=== PATIENT | female | born 2000 | race Caucasian/White ===

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

== ENCOUNTER 2023-08-09 19:19 | Emergency (ER) | payer BC, OTHER ==
[2023-08-09] MEDS ORDERED: ACETAMINOPHEN 500 MG TABLET (FP) ONE (19:47)
[2023-08-09] MEDS ORDERED: FAMOTIDINE 20 MG TABLET ONE (19:48)
[2023-08-09] MEDS ORDERED: MAG HYDROX/AL HYDROX/SIMETH 30 ML UNIT-DOSE CUP ONE (19:48)
[2023-08-09 19:51] VITALS: BP 145/98; PULSE 79; RESP 24; TEMP 98.2; BMI 20.7
[2023-08-09] MEDS: MAG HYDROX/AL HYDROX/SIMETH 30 ML UNIT-DOSE CUP PO ONE (19:57)
[2023-08-09] MEDS: FAMOTIDINE 20 MG TABLET PO ONE (19:57)
[2023-08-09] MEDS: ACETAMINOPHEN 500 MG TABLET (FP) PO ONE (19:57)
[2023-08-09 20:14] LABS: EPITHELIAL CELLS 21-50 /hpf
[2023-08-09 20:54] LABS: HEMATOCRIT 38.2 % (32.4-45.2); HEMOGLOBIN 13.1 G/dL (10.7-15.3); MCH 30.6 pg (25.7-33.7); MCHC 34.2 g/dl (32.0-36.0); MEAN CELL VOLUME 89.4 fl (80-96); PLATELET COUNT 341.5 10^3/uL (134-434); RBC 4.27 10^6/uL (3.60-5.2); RDW 13.3 % (11.6-15.6); WHITE BLOOD COUNT 12.8 10^3/uL (4.0-10.8)
[2023-08-09 21:15] LABS: PLATELET ESTIMATE ADEQUATE
[2023-08-09 21:23] LABS: ALBUMIN 4.1 g/dl (3.4-5.0); BILIRUBIN,TOTAL 0.3 mg/dl (0.2-1); CALCIUM 9.7 mg/dl (8.5-10.1); CREATININE 0.5 mg/dl (0.6-1.3); POTASSIUM 3.7 mmol/L (3.5-5.1); TOT PROT 6.3 g/dl (6.4-8.2)
[2023-08-09] MEDS ORDERED: KETOROLAC TROMETHAMINE 15 MG/ML VIAL ONE (22:00)
[2023-08-09] MEDS ORDERED: METHOCARBAMOL 500 MG TABLET ONE (22:00)
[2023-08-09] MEDS: KETOROLAC TROMETHAMINE 15 MG/ML VIAL IVPUSH ONE (22:03)
[2023-08-09] MEDS: METHOCARBAMOL 500 MG TABLET PO ONE (22:03)
== END 2023-08-09 22:07 | disposition home or self-care (01) ==
LOC: FER 19:19
PROC: 3E0333Z Introduction of Anti-inflammatory into Peripheral Vein, Percutaneous Approach (ICD-10-PCS; principal; 2023-08-09)
DX: R06.02 Shortness of breath (principal); R10.13 Epigastric pain
CPT/HCPCS: 36415; 71046-TC-FY; 80053; 81003; 81015; 81025; 85027; 85379; 87086; 87186; 93005; 99285-25